=== PATIENT | female | born 1995 | race Caucasian/White ===

== ENCOUNTER 2017-11-06 06:39 | Emergency (ER) | payer OTHER ==
[~2017-11-06] VITALS: Ht 167.6 cm; Wt 68.0 kg
[~2017-11-06 06:39] MED LIST: COLACE100 MG PO; LAC PO; LEVAQUIN250 MG PO; NOR10T PO
[2017-11-06 06:49] VITALS: BP 137/69; Ht 167.6 cm; Wt 68.0 kg
== END 2017-11-06 07:52 | disposition home or self-care (01) ==
LOC: ED 06:39
DX: J03.90 Acute tonsillitis, unspecified (principal)
CPT/HCPCS: J0696; J1100

== ENCOUNTER 2018-07-07 11:17 | Emergency (ER) | payer OTHER ==
[~2018-07-07] VITALS: Ht 170.2 cm; Wt 3.6 kg
[2018-07-07 11:41] VITALS: BP 116/76; Ht 170.2 cm; Wt 3.6 kg
== END 2018-07-07 12:42 | disposition home or self-care (01) ==
LOC: ED 11:17
DX: S40.869A Insect bite (nonvenomous) of unspecified upper arm, initial encounter (principal); S90.562A Insect bite (nonvenomous), left ankle, initial encounter; S90.561A Insect bite (nonvenomous), right ankle, initial encounter; W57.XXXA Bitten or stung by nonvenomous insect and other nonvenomous arthropods, initial encounter; Y93.89 Activity, other specified; Y92.89 Other specified places as the place of occurrence of the external cause; Y99.8 Other external cause status